=== PATIENT | female | born 1960 | race Caucasian/White ===

== ENCOUNTER 2023-05-19 10:42 | Emergency (ER) | payer BC, OTHER ==
[~2023-05-19] VITALS: Ht 167.6 cm; Wt 80.9 kg
[2023-05-19 12:30] VITALS: BP 171/98; PULSE 90; RESP 20; TEMP 98.4; O2SAT 99
[2023-05-19] MEDS ORDERED: DexAMETHasone INJECTION 10 MG in D5W 5% 50 ML IV ONE (12:30)
== END 2023-05-19 13:51 | disposition home or self-care (01) ==
LOC: EDBD 10:42 → ER 10:42
DX: T78.3XXA Angioneurotic edema, initial encounter (principal); T78.49XA Other allergy, initial encounter; Z88.2 Allergy status to sulfonamides; Y92.89 Other specified places as the place of occurrence of the external cause
CPT/HCPCS: 96374; 99284; J1100; J7060